=== PATIENT | female | born 1985 | race Caucasian/White ===

== ENCOUNTER 2021-12-14 11:21 | Emergency (ER) | payer OTHER ==
[2021-12-14 12:32] LABS: BASOPHIL 1.6 % (0-2); EOSINOPHIL 1.9 % (0-5); HCT 41.6 % (37.0-47.0); LYMPHOCYTE 27.3 % (15-48); MCH 28.2 pg (25.0-31.0); MCHC 33.7 g/dL (32.0-36.0); MCV 83.7 fL (78.0-100.0); MONOCYTE 6.4 % (0-12); MPV 10.1 fL (6.0-9.5); NEUTROPHIL 62.5 % (41-80); NRBC 0; PLT 382 K/uL (150-400); RBC 4.97 M/uL (4.20-5.40); RDW 13.2 % (11.5-14.0)
[2021-12-14 13:07] LABS: BILIRUBIN NEGATIVE (NEGATIVE); BLOOD 3+ Ery/uL (NEGATIVE); CLARITY CLEAR (CLEAR); COLOR YELLOW (YELLOW); GLUCOSE (U) NORMAL (NORMAL); LEUKOCYTES NEGATIVE Leu/uL (NEGATIVE); NITRITE NEGATIVE (NEGATIVE); PROTEIN NEGATIVE (NEGATIVE); SPECIFIC GRAVITY 1.025 (1.001-1.030); UROBILINOGEN 0.2 mg/dL (0.2-1.0)
[2021-12-14 13:23] LABS: ALBUMIN 3.9 g/dL (3.4-5.0); BILIRUBIN - TOTAL 0.5 mg/dL (0.2-1.0); BUN/CREAT RATIO (CALC) 9.3 RATIO; CREATININE 0.54 mg/dL (0.51-0.95); GLOBULIN (CALCULATION) 2.8 g/dL; TOTAL PROTEIN 6.7 g/dL (6.4-8.2)
[2021-12-14] MEDS ORDERED: ONDANSETRON ODT4 MG PO (15:19)
[2021-12-14] MEDS ORDERED: NORCO 5-325 TA1 EACH PO (15:19)
== END 2021-12-14 15:45 | disposition home or self-care (01) ==
LOC: FER 11:21
PROVIDERS: Emergency Medicine
DX: R10.11 Right upper quadrant pain (principal); Z28.310 Unvaccinated for COVID-19
CPT/HCPCS: 36415; 80053; 81001; 82150; 83690; 85025; J2270; J2405; J7030

== ENCOUNTER 2021-12-16 07:29 | Emergency (ER) | payer OTHER ==
[~2021-12-16 07:29] MED LIST: NORCO 5-325 TA1 EACH PO; ONDANSETRON ODT4 MG PO
[2021-12-16 08:08] LABS: BASOPHIL 1.3 % (0-2); EOSINOPHIL 2.3 % (0-5); HCT 41.4 % (37.0-47.0); HGB 13.9 g/dl (12.5-16.0); LYMPHOCYTE 24.8 % (15-48); MCH 27.9 pg (25.0-31.0); MCHC 33.6 g/dL (32.0-36.0); MCV 83.1 fL (78.0-100.0); MONOCYTE 10.6 % (0-12); MPV 9.9 fL (6.0-9.5); NEUTROPHIL 60.6 % (41-80); NRBC 0; PLT 351 K/uL (150-400); RBC 4.98 M/uL (4.20-5.40); RDW 12.8 % (11.5-14.0); WBC 7.1 K/uL (4.0-10.5)
[2021-12-16 08:29] LABS: ALBUMIN 3.8 g/dL (3.4-5.0); BILIRUBIN - TOTAL 0.4 mg/dL (0.2-1.0); BUN/CREAT RATIO (CALC) 10.3 RATIO; CREATININE 0.58 mg/dL (0.51-0.95); GLOBULIN (CALCULATION) 2.6 g/dL; POTASSIUM 3.5 mmol/L (3.5-5.1); TOTAL PROTEIN 6.4 g/dL (6.4-8.2)
[2021-12-16] MEDS ORDERED: NAPROXEN500 MG PO (09:03)
[2021-12-16] MEDS ORDERED: CYCLOBENZAPRINE10 MG PO (09:03)
== END 2021-12-16 09:34 | disposition home or self-care (01) ==
LOC: FER 07:29
PROVIDERS: Emergency Medicine
DX: S46.011A Strain of muscle(s) and tendon(s) of the rotator cuff of right shoulder, initial encounter (principal); F17.210 Nicotine dependence, cigarettes, uncomplicated; Z28.310 Unvaccinated for COVID-19
CPT/HCPCS: 36415; 80053; 83690; 85025; 99283; J1885